=== PATIENT | male | born 1970 | race Native Hawaiian/Other Pacific Islander ===

== ENCOUNTER 2019-01-16 13:29 | Emergency (ER) | payer OTHER ==
[~2019-01-16] VITALS: Ht 190.5 cm; Wt 115.2 kg
[2019-01-16 13:37] VITALS: TEMP 98.2
[2019-01-16 15:24] VITALS: BP 118/78
== END 2019-01-16 15:23 | disposition home or self-care (01) ==
LOC: ED 13:29
DX: J90 Pleural effusion, not elsewhere classified (principal); X50.9XXA Other and unspecified overexertion or strenuous movements or postures, initial encounter
CPT/HCPCS: 96372; 99283; J1885